=== PATIENT | female | born 1950 | race African-American/Black ===

== ENCOUNTER → 2016-09-24 | Outpatient (CLI) | payer OTHER ==
[~2016-09-24] MED LIST: BENAZEPRIL PO; CELEBREX PO; FISH OIL 1,2001 EACH PO; HYDROCHLOROTHIA25 MG PO; PREMARIN PO; PREVACID PO; PROTONIX PO; VITAMIN B; VITAMIN D2000 UNIT PO; VITAMIN D31000 UNIT PO
--- NOTE | ~2016-09-24 | US6 ---
[facility] A Service of [facility] & [facility] RADIOLOGY TEXT RESULTS PATIENT: YAO JOSÉ LOCATION: [facility] : 54 UNIT #: [id number] AGE: [address]: Fortunato Apple MD SEX: F ORDER DR: [id number] [facility] [address] [place], [place] [address] [id number] O MR#: [id number] Acc #: [id number] NAME: YAO JOSÉ : 1950 SEX: F STUDY DATE/TIME: 09/24/2016 7:44 UNIT: [facility] ROOM: STUDY DESCRIPTION: US Abdominal Limited Attending Physician: Fortunato Apple M.D. Referring Physician: Fortunato Apple M.D. Ordering Physician: Fortunato Apple M.D. Primary Care Physician: Fortunato Apple M.D. MEDICAL IMAGING REPORT This report is preliminary unless electronic signature is present EXAM Right upper quadrant ultrasound 09/24/2016 HISTORY Right upper quadrant abdominal pain for 1 year. FINDINGS The liver demonstrates an increase in echotexture with attenuation of the ultrasound beam characteristic of fatty infiltration. No cystic or solid mass lesions were seen in the liver. The intra and extrahepatic bile ducts are not dilated. The gallbladder is normal with no evidence of cholelithiasis, wall thickening or pericholecystic fluid. The common duct measures 5 mm. The pancreas and right kidney are normal. IMPRESSION Fatty infiltration of the liver. Otherwise negative right upper quadrant ultrasound. Dictated by... Onofre Hyman M.D. THIS IS AN ELECTRONICALLY VERIFIED REPORT Onofre Hyman M.D. at 09/25/2016 8:04 AM FLORENCIO/[place] TD: 09/24/2016 10:38 JOB #: [id number] MEDICAL IMAGING REPORT Page 1 of 1 COPY
--- NOTE | ~2016-09-24 | NM22 ---
[facility] A Service of [facility] RADIOLOGY TEXT RESULTS PATIENT: YAO JOSÉ LOCATION: [facility] : 54 UNIT #: [id number] AGE: [address]: Fortunato Apple MD SEX: F ORDER DR: [id number] [facility] [address] [place], [place] [address] [id number] O MR#: [id number] Acc #: [id number] NAME: YAO JOSÉ : 1950 SEX: F STUDY DATE/TIME: 09/24/2016 9:22 UNIT: [facility] ROOM: STUDY DESCRIPTION: NM Hepatobiliary W GB Pharm Attending Physician: Fortunato Apple M.D. Referring Physician: Fortunato Apple M.D. Ordering Physician: Fortunato Apple M.D. Primary Care Physician: Fortunato Apple M.D. MEDICAL IMAGING REPORT This report is preliminary unless electronic signature is present EXAM HIDA scan with Kinevac CCK 09/24/2016 HISTORY Right upper quadrant abdominal pain for 2 years with nausea and gastroesophageal reflux disease. FINDINGS The patient received an intravenous injection of 5.64 mCi of technetium-99m tagged Choletec for hepatobiliary imaging. 1 hour following injection of the radiopharmaceutical, the patient received an intravenous injection of 2 mcg of Kinevac. There is homogeneous distribution of the radiotracer throughout the liver. Gallbladder activity was seen by 45 minutes postinjection of the radiopharmaceutical. Following Kinevac injection the gallbladder ejection fraction was 88.3% (normal is greater than 30%). IMPRESSION Normal HIDA scan with gallbladder ejection fraction of 88.3%. Dictated by... Onofre Hyman M.D. THIS IS AN ELECTRONICALLY VERIFIED REPORT Onofre Hyman M.D. at 09/25/2016 8:04 AM FLORENCIO/[place] TD: 09/24/2016 10:53 JOB #: [id number] MEDICAL IMAGING REPORT Page 1 of 1 COPY
== END | disposition home or self-care (01) ==
LOC: CGUS 07:15
DX: R10.9 Unspecified abdominal pain (principal); K76.0 Fatty (change of) liver, not elsewhere classified
CPT/HCPCS: 76705; 78227; A9537; J2805

== ENCOUNTER → 2016-11-05 | Outpatient (CLI) | payer OTHER ==
[2016-11-05 14:07] LABS: URINE APPEARANCE CLOUDY; URINE BILIRUBIN NEG (NEG); URINE BLOOD NEG (NEG); URINE COLOR YELLOW; URINE GLUCOSE NEG (NEG); URINE KETONE NEG (NEG); URINE LEUKOCYTE ESTERASE 2+ (NEG); URINE NITRATE NEG (NEG); URINE PROTEIN NEG (NEG); URINE SPECIFIC GRAVITY 1.018 (1.003-1.035); URINE UROBILINOGEN 0.2 MG/DL (NEG)
[2016-11-05 14:10] LABS: URBCS1 AUWI 0-2 /[HPF] (0-2); URINE BACTERIA AUWI 4+ (NEGATIVE); URINE SQUAMOUS EPITHELIAL CELL MOD /[HPF]; UWBCS1 AUWI 25-50 (0-5)
== END | disposition home or self-care (01) ==
LOC: CLAB 13:37
PROVIDERS: Nurse Practitioner
DX: R10.11 Right upper quadrant pain (principal)
CPT/HCPCS: 81003

== ENCOUNTER → 2016-11-17 | Outpatient (CLI) | payer OTHER ==
--- NOTE | ~2016-11-17 | CT2 ---
[facility] A Service of [facility] RADIOLOGY TEXT RESULTS PATIENT: YAO JOSÉ LOCATION: [facility] : 54 UNIT #: [id number] AGE: [address]: LAURI CANTU APRN SEX: F ORDER DR: [id number] [facility] [address] [place], [place] [address] [id number] O MR#: [id number] Acc #: [id number] NAME: YAO JOSÉ : 1950 SEX: F STUDY DATE/TIME: 11/17/2016 9:31 UNIT: [facility] ROOM: STUDY DESCRIPTION: CT Abd and Pelv W Cont Attending Physician: Lauri Cantu Aprn Referring Physician: Lauri Cantu Aprn Ordering Physician: Lauri Cantu Aprn Primary Care Physician: Fortunato Apple M.D. MEDICAL IMAGING REPORT This report is preliminary unless electronic signature is present EXAM CT abdomen and pelvis. INDICATION Right-sided abdominal pain for [address] abdomen and pelvis with p.o. and IV contrast (100 mL Isovue-370 IV contrast). Coronal and sagittal reconstructions were obtained. This CT exam was performed with one or more of the following radiation dose reduction techniques: automatic exposure control, adjustment of mA and/or kV according to patient size, and iterative reconstruction. COMPARISON CT abdomen and pelvis dated 04/06/2008. FINDINGS ABDOMEN: Minimal linear atelectasis or scarring is noted in both lung bases. The solid abdominal organs are within normal limits. The gallbladder is not distended. The bowel is not dilated. The appendix is normal. No pathologically enlarged retroperitoneal or mesenteric lymph nodes. The abdominal aorta is normal in caliber. PELVIS: No pelvic mass. The uterus and ovaries are presumed surgically absent. Bladder is unremarkable. No enlarged pelvic or inguinal lymph nodes. No acute osseous abnormalities. IMPRESSION [facility] A Service [facility] RADIOLOGY TEXT RESULTS PATIENT: YAO JOSÉ [facility] : 54 UNIT #: [id number] AGE: [address]: LAURI CANTU APRN SEX: F ORDER DR: No acute findings in the abdomen or pelvis. Dictated by... Anuel Cantu M.D. THIS IS AN ELECTRONICALLY VERIFIED REPORT Anuel Cantu M.D. at 11/17/2016 12:43 PM RPC/sofía TD: 11/17/2016 12:15 JOB #: [id number] MEDICAL IMAGING REPORT Page 1 of 1 COPY
[2016-11-17 08:41] LABS: CREATININE SERUM 1.2 mg/dL (0.6-1.4); GLOM FILT RATE Estimated 55.3 mL/min (>60)
== END | disposition home or self-care (01) ==
LOC: CCAT 11-10 08:40
PROVIDERS: Nurse Practitioner
DX: R10.11 Right upper quadrant pain (principal)
CPT/HCPCS: 36415; 74177; 82565; 84520; Q9967

== ENCOUNTER → 2017-01-26 | Outpatient (CLI) | payer MEDICARE, OTHER ==
[2017-01-26 10:19] LABS: URINE APPEARANCE CLEAR; URINE BILIRUBIN NEG (NEG); URINE BLOOD NEG (NEG); URINE COLOR YELLOW; URINE GLUCOSE NEG (NEG); URINE KETONE NEG (NEG); URINE LEUKOCYTE ESTERASE 2+ (NEG); URINE NITRATE NEG (NEG); URINE PROTEIN NEG (NEG); URINE UROBILINOGEN 0.2 MG/DL (NEG)
[2017-01-26 10:21] LABS: U HYALINE CASTS AUWI 0-2 /[LPF]; URBCS1 AUWI 0-2 /[HPF] (0-2); URINE BACTERIA AUWI 2+ (NEGATIVE); URINE SQUAMOUS EPITHELIAL CELL FEW /[HPF]
[2017-01-26 10:22] LABS: URINE SOURCE CLEAN CATCH
== END | disposition home or self-care (01) ==
LOC: CLAB 09:53
PROVIDERS: Nurse Practitioner
DX: R30.0 Dysuria (principal)
CPT/HCPCS: 81003; 87086